=== PATIENT | female | born 1985 | race American Indian/Alaskan Native ===

== ENCOUNTER 2016-11-30 14:10 | Emergency (ER) | payer OTHER ==
[2016-11-30 14:21] VITALS: BP 123/80
[2016-11-30] MEDS ORDERED: NACL 0.9% 1000 ML 1,000 ML IV ONE (14:21)
[2016-11-30 14:58] LABS: Basophils % (Auto) 1.8 % (0.0-1.8); Eosinophils % (Auto) 1.2 % (0.0-4.3); Hemoglobin 11.7 gm/dl (10.1-14.3); Mean Corpuscular HGB Conc 32 % (30-34); Mean Corpuscular Volume 80 fl (79-97); Platelet Count 219 K/mm3 (140-440); Red Blood Count 4.64 M/mm3 (3.65-5.03); Red Cell Distribution Width 14.8 % (13.2-15.2); White Blood Count 6.3 K/mm3 (4.5-11.0)
[2016-11-30 15:06] LABS: Mean Corpuscular Hemoglobin 25 pg (28-32)
[2016-11-30 15:08] LABS: INR 0.95 (0.87-1.13)
[2016-11-30 15:09] LABS: Partial Thromboplastin Time 35.5 Sec. (24.2-36.6)
[2016-11-30 15:13] LABS: Alanine Aminotransferase 19 units/L (7-56); Albumin 3.6 g/dL (3.9-5); Albumin/Globulin Ratio 1.1 %; Alkaline Phosphatase 75 units/L (35-129); Anion Gap 18 mmol/L; BUN/Creatinine Ratio 15; Blood Urea Nitrogen 9 mg/dL (7-17); Calcium 8.9 mg/dL (8.4-10.2); Carbon Dioxide 23 mmol/L (22-30); Chloride 103.1 mmol/L (98-107); Glucose 102 mg/dL (65-100); Lipase 17 units/L (13-60); Potassium 3.8 mmol/L (3.6-5.0); Sodium 140 mmol/L (137-145); Total Protein 6.9 g/dL (6.3-8.2)
== END 2016-11-30 20:10 | disposition left against medical advice (07) ==
LOC: ED 14:10
DX: R19.5 Other fecal abnormalities (principal); Z53.21 Procedure and treatment not carried out due to patient leaving prior to being seen by health care provider
CPT/HCPCS: 36415; 80053; 83690; 84703; 85025; 85610; 85730; 86850; 86900; 86901; 93005; 93010